=== PATIENT | male | born 1955 | race Caucasian/White ===

== ENCOUNTER 2019-02-09 12:51 | Emergency (ER) | payer BC ==
[2019-02-09] MEDS ORDERED: Lidocaine 1% (PF) 30 ML VIAL ONE (14:07)
--- NOTE | 2019-02-09 14:24 | RAD ---
EXAM: 3 views of the left hand COMPARISON: None HISTORY: Laceration to the fingers of the hand with a table saw FINDINGS: 3 views of the left hand shows no evidence of acute fracture or dislocation. There may be a small radiopaque foreign body along the volar aspect of the ring finger. No degenerative changes are seen. No soft tissue swelling is present. IMPRESSION: No evidence of acute osseous abnormality.
== END 2019-02-09 15:05 | disposition home or self-care (01) ==
LOC: ERS 12:51
DX: S61.215A Laceration without foreign body of left ring finger without damage to nail, initial encounter (principal); S61.211A Laceration without foreign body of left index finger without damage to nail, initial encounter; S61.213A Laceration without foreign body of left middle finger without damage to nail, initial encounter; E78.5 Hyperlipidemia, unspecified; I10 Essential (primary) hypertension; E11.9 Type 2 diabetes mellitus without complications; Z79.4 Long term (current) use of insulin; W31.2XXA Contact with powered woodworking and forming machines, initial encounter
CPT/HCPCS: 12002; J2001

== ENCOUNTER 2020-11-30 08:04 | Emergency (ER) | payer BC ==
[2020-11-30 08:48] LABS: #Basophils 0.1 thou/uL (0.0-0.2); #Eosinphils 0.2 thou/uL (0.0-0.7); #Lymphocytes 1.8 thou/uL (1.20-3.40); #Neutrophils 7.1 thou/uL (1.40-6.50); %Basophils 0.6 % (0.0-1.0); %Eosinophils 1.5 % (0.0-10.0); %Lymphocytes 17.7 % (21.0-51.0); %Monocytes 9.8 % (0.0-10.0); %Neutrophils 70.5 % (42.0-75.0); Hemoglobin 16.7 g/dL (14.0-18.0); Mean Corpuscular HGB CONC 31.7 g/dL (32.0-36.0); Mean Corpuscular Hemoglobin 30.7 pg (27.0-31.0); Mean Corpuscular Volume 96.8 fL (78.0-98.0); Mean Platelet Volume 9.2 fL (7.4-10.4); Platelet Count 180 thou/uL (130-400); RBC Distribution Width 12.5 % (11.5-14.5); Red Blood Cell (RBC) Count 5.44 mill/uL (4.70-6.10); White Blood Cell (WBC) Count 10.1 thou/uL (4.8-10.8)
[2020-11-30 09:09] LABS: Bacteria/HPF None Seen HPF (None Seen); Bilirubin Negative (Negative); Blood, Urine 1+ (Negative); Clarity Clear (Clear); Glucose, Urine (Dipstick) Greater than 1000 mg/dL (Negative); Ketone, Urine Negative (Negative); Leukocyte Negative Leu/uL (Negative); Nitrite Negative (Negative); Protein, Urine (Dipstick) 100 mg/dL (Neg-Trace); RBC/HPF 0-3 HPF (0-3); Specific Gravity, Urine 1.027 (1.002-1.036); Squamous Epithelial None Seen HPF (0-3); Urobilinogen Normal mg/dL (Less than 2); WBC/HPF 0-3 HPF (0-3); pH, Urine 5.5 (5.0-9.0)
[2020-11-30 09:11] LABS: ALT (SGPT) 20 U/L (8-55); AST (SGOT) 17 U/L (5-34); Albumin 4.2 g/dL (3.4-4.8); Alkaline Phosphatase 72 U/L (40-110); Anion Gap 18 mmol/L (10-20); BUN (Urea Nitrogen) 24 mg/dL (8.4-25.7); Bilirubin, Total 0.7 mg/dL (0.2-1.2); Calc. Creatinine Clearance 0 mL/min (70-130); Calcium 9.6 mg/dL (7.8-10.44); Carbon Dioxide 24 mmol/L (23-31); Chloride 105 mmol/L (98-107); Globulin 3.6 g/dL (2.4-3.5); Glucose 229 mg/dL (80-115); Potassium 4.8 mmol/L (3.5-5.1); Protein, Total 7.8 g/dL (5.8-8.1); Sodium 142 mmol/L (136-145)
[2020-11-30] MEDS ORDERED: Morphine 4 MG/ML VIAL ONE (11:36)
[2020-11-30] MEDS ORDERED: cefTRIAXone\\ROCEPHIN 1 GM VIAL ONE (13:27)
== END 2020-11-30 14:57 | disposition home or self-care (01) ==
LOC: ERS 08:04
DX: N40.1 Benign prostatic hyperplasia with lower urinary tract symptoms (principal); R33.8 Other retention of urine; N39.0 Urinary tract infection, site not specified; I10 Essential (primary) hypertension; E78.00 Pure hypercholesterolemia, unspecified; E78.5 Hyperlipidemia, unspecified; Z79.4 Long term (current) use of insulin; Z87.891 Personal history of nicotine dependence; Z79.899 Other long term (current) drug therapy
CPT/HCPCS: 36415; 74177; 80053; 81003; 81015; 85025; 87086; 96365; 96375; J0696; J2270

== ENCOUNTER 2023-03-30 08:11 | Outpatient (CLI) | payer BC ==
[2023-03-30 09:57] LABS: #Basophils 0.1 10x3/uL (0.0-0.2); #Eosinphils 0.2 10x3/uL (0.0-0.5); #Monocytes 0.9 10x3/uL (0.0-1.1); #Neutrophils 4.6 10x3/uL (1.5-8.4); %Eosinophils 2.2 % (0.0-6.0); %Monocytes 11.2 % (0.0-10.0); %Neutrophils 55.4 % (40.0-75.0); Hematocrit 52.4 % (38.8-50.0); Hemoglobin 17.6 g/dL (13.5-17.5); Mean Corpuscular HGB CONC 33.6 g/dL (32.0-36.0); Mean Corpuscular Hemoglobin 31.7 pg (27.0-33.0); Mean Corpuscular Volume 94.4 fl (81.2-95.1); Platelet Count 181 10x3/uL (150-450); RBC Distribution Width 13.4 % (11.5-14.5); Red Blood Cell (RBC) Count 5.55 10x6/uL (4.32-5.72); White Blood Cell (WBC) Count 8.3 10x3/uL (3.5-10.5)
[2023-03-30 10:04] LABS: Prothrombin Time 10.9 sec (9.5-12.1)
[2023-03-30 10:09] LABS: ALT (SGPT) 24 U/L (8-55); AST (SGOT) 23 U/L (5-34); Albumin 4.4 g/dL (3.4-4.8); Alkaline Phosphatase 66 U/L (40-110); Anion Gap 17 mmol/L (10-20); BUN (Urea Nitrogen) 24 mg/dL (8.4-25.7); Bilirubin, Direct 0.3 mg/dL (0.1-0.3); Calc. Creatinine Clearance 0 mL/min (70-130); Calcium 9.7 mg/dL (7.8-10.44); Carbon Dioxide 21 mmol/L (23-31); Chloride 107 mmol/L (98-107); Estimated GFR 86; Globulin 3.6 g/dL (2.4-3.5); Glucose 91 mg/dL (80-115); Potassium 4.8 mmol/L (3.5-5.1); Sodium 140 mmol/L (136-145)
== END 2023-03-30 08:12 | disposition home or self-care (01) ==
LOC: LABBT 08:11
PROVIDERS: ATTEND Internal Medicine Gastroenterology
DX: Z01.818 Encounter for other preprocedural examination (principal)
CPT/HCPCS: 71046; 80053; 80076; 85025; 85610; 85730

== ENCOUNTER 2023-04-02 07:15 | Inpatient (IN) | payer BC, MEDICARE ==
[2023-04-02] MEDS ORDERED: Heparin 10,000 UNITS/ 10 ML VIAL ONE (07:19)
[2023-04-02] MEDS ORDERED: fentaNYL 50 mcg/mL 1 mL Vial ONE (07:19)
[2023-04-02] MEDS ORDERED: Midazolam HCl 2 mg/2 ml Vial ONE (07:19)
[2023-04-02] MEDS ORDERED: Lidocaine 1% (PF) 30 ML VIAL ONE (07:19)
[2023-04-02] MEDS ORDERED: Nitroglycerin 50 MG/250 ML BOT 0 ML ONE (07:20)
[2023-04-02] MEDS ORDERED: Atropine Sulfate 1 mg/10 ml Syringe ONE (08:03)
[2023-04-02 08:06] LABS: Cardiac Risk 4.7 (Less than 4.5)
[2023-04-02] MEDS ORDERED: Iopamidol 370 76% 100 ML VIAL ONE (09:54)
[2023-04-02 11:59] LABS: #Basophils 0.1 thou/uL (0.0-0.2); #Eosinphils 0.2 thou/uL (0.0-0.7); #Monocytes 0.8 thou/uL (0.11-0.59); #Neutrophils 4.6 thou/uL (1.40-6.50); %Basophils 0.6 % (0.0-1.0); %Lymphocytes 30.2 % (21.0-51.0); %Monocytes 9.7 % (0.0-10.0); %Neutrophils 57.3 % (42.0-75.0); Hematocrit 49.5 % (42.0-52.0); Hemoglobin 16.5 g/dL (14.0-18.0); Mean Corpuscular HGB CONC 33.3 g/dL (32.0-36.0); Mean Corpuscular Hemoglobin 31.8 pg (27.0-31.0); Mean Corpuscular Volume 95.4 fl (78.0-98.0); Mean Platelet Volume 11.7 fL (7.4-10.4); Platelet Count 177 10x3/uL (130-400); RBC Distribution Width 13.3 % (11.5-14.5); Red Blood Cell (RBC) Count 5.19 mill/uL (4.70-6.10); White Blood Cell (WBC) Count 8.1 10x3/uL (4.8-10.8)
[2023-04-02 12:10] LABS: Hemoglobin A1c 10.1 % (4.0-6.0)
[2023-04-02 12:22] LABS: ALT (SGPT) 21 U/L (8-55); AST (SGOT) 17 U/L (5-34); Alkaline Phosphatase 61 U/L (40-110); Anion Gap 10 mmol/L (10-20); BUN (Urea Nitrogen) 25 mg/dL (8.4-25.7); Bilirubin, Total 0.6 mg/dL (0.2-1.2); Calc. Creatinine Clearance 110 mL/min (70-130); Carbon Dioxide 21 mmol/L (23-31); Chloride 109 mmol/L (98-107); Cholesterol 144 mg/dl (< 200 Desired); Estimated GFR 95; Globulin 3.5 g/dL (2.4-3.5); Glucose 133 mg/dL (80-115); HDL Cholesterol 29 mg/dL (>60 Neg Risk); LDL Cholesterol, Calculated 94 mg/dL; Potassium 4.1 mmol/L (3.5-5.1); Protein, Total 7.5 g/dL (5.8-8.1); Sodium 136 mmol/L (136-145); Triglycerides 107 mg/dL (Less than 150)
[2023-04-02] MEDS: HumaLOG 300 UNITS/3 ML VIAL SC SCH (13:35)
[2023-04-02] MEDS: Insulin Glargine 30 UNITS/0.3 ML VIAL SC SCH (20:54)
[2023-04-02] MEDS: Atorvastatin Calcium 40 MG TAB PO SCH (20:55)
[2023-04-02] MEDS: Carvedilol 6.25 MG TAB PO SCH (20:55)
[2023-04-03] MEDS: Tamsulosin HCl 0.4 MG CAP PO SCH (09:00)
[2023-04-03] MEDS ORDERED: Empagliflozin 10 MG TAB PO SCH (09:00)
[2023-04-03] MEDS: Aspirin 81 mg Enteric Coated Tablet PO SCH (09:00)
[2023-04-03] MEDS: Insulin Glargine 30 UNITS/0.3 ML VIAL SC SCH (09:00)
[2023-04-03] MEDS: Lisinopril 10 MG TAB PO SCH (09:02)
[2023-04-03 09:47] LABS: Bacteria/HPF 4+ HPF (None Seen); Bilirubin Negative (Negative); Blood, Urine 1+ (Negative); Clarity Turbid (Clear); Glucose, Urine (Dipstick) 300 mg/dL (Negative); Ketone, Urine Negative (Negative); Leukocyte 500 Leu/uL (Negative); Nitrite Negative (Negative); Protein, Urine (Dipstick) 50 mg/dL (Neg-Trace); Urobilinogen Normal mg/dL (Less than 2); WBC/HPF Greater than 50 HPF (0-3); pH, Urine 5.5 (5.0-9.0)
[2023-04-03] MEDS ORDERED: Communication Order-Pharmacy FS SCH (14:50)
[2023-04-04] MEDS ORDERED: EPINEPHrine 1 MG/ML VIAL ONE (06:16)
[2023-04-04] MEDS ORDERED: Dexamethasone 4 mg/ml Vial ONE (06:16)
[2023-04-04] MEDS ORDERED: Bupivacaine PF 0.5% 30 ML VIAL ONE (06:16)
[2023-04-04] MEDS ORDERED: Albumin 5% 500 ML ONE (06:16)
[2023-04-04] MEDS ORDERED: Midazolam HCl 2 mg/2 ml Vial ONE ×2 (06:43)
[2023-04-04] MEDS ORDERED: Fentanyl 250 MCG/5 ML VIAL ONE ×2 (06:43)
[2023-04-04] MEDS ORDERED: Aminocaproic Acid 5 GM/20 ML VIAL ONE ×2 (06:44→07:49)
[2023-04-04] MEDS ORDERED: PHENYLEPHRINE-NS 100 MCG/ML 10 ML SYRINGE ONE ×2 (06:44→09:58)
[2023-04-04] MEDS ORDERED: Heparin 10,000 UNITS/1 ML VIAL 30,000 UNITS in Sodium Chloride 0.9% 1,000 ML FS SCH (06:45)
[2023-04-04] MEDS ORDERED: Etomidate 40 MG (20 mL) VIAL ONE (06:45)
[2023-04-04] MEDS ORDERED: CEFAZOLIN 2 GM VIAL ONE (07:25)
[2023-04-04] MEDS ORDERED: Sodium Chloride 0.9% 100 ML ONE (07:26)
[2023-04-04] MEDS ORDERED: Vecuronium 10 MG VIAL ONE (07:49)
[2023-04-04] MEDS ORDERED: Potassium Chloride 60 mEq (30 mL) VIAL ONE (07:49)
[2023-04-04] MEDS ORDERED: DOPamine 400 MG/10 ML VIAL ONE (07:49)
[2023-04-04] MEDS ORDERED: Lidocaine 2% PF 100 mg/5 ml Syringe ONE (07:49)
[2023-04-04] MEDS ORDERED: Cardioplegic Soln 1,000 ML BAG ONE (07:49)
[2023-04-04] MEDS ORDERED: Protamine Sulfate 250 MG/25 ML VIAL ONE (07:49)
[2023-04-04] MEDS ORDERED: Vancomycin 1 GM VIAL ONE (07:49)
[2023-04-04] MEDS ORDERED: Mannitol 12.5 GM/50 ML ONE (07:49)
[2023-04-04] MEDS ORDERED: Calcium Chloride 1 GM/10 ML Abboject SYRINGE ONE (07:49)
[2023-04-04] MEDS ORDERED: Heparin 30,000 units/30 ml VIAL ONE (07:49)
[2023-04-04] MEDS ORDERED: Heparin 5,000 UNITS/ML VIAL ONE (07:49)
[2023-04-04] MEDS ORDERED: Papaverine 60 MG/2 ML VIAL ONE (07:49)
[2023-04-04] MEDS ORDERED: Lidocaine 1% PF 5 ML VIAL ONE (07:49)
[2023-04-04] MEDS ORDERED: Sodium Bicarb 50 mEq/50 ML VIAL ONE (07:49)
[2023-04-04] MEDS ORDERED: Thrombin 5000 UNITS/5 ML VIAL ONE (07:49)
[2023-04-04] MEDS ORDERED: Magnesium 5 GM/10 ML VIAL ONE (07:49)
[2023-04-04] MEDS ORDERED: Sevoflurane 250 ML INH ANEST BOTTLE ONE (08:15)
[2023-04-04] MEDS ORDERED: Insulin Regular 300 UNITS/3 ML VIAL ONE (08:15)
[2023-04-04] MEDS ORDERED: PROPOFOL 20 ML ONE (09:18)
[2023-04-04] MEDS ORDERED: Post-Op Insulin Drip Protocol IVPB SCH (11:47)
[2023-04-04] MEDS ORDERED: hydrALAZINE 20 MG/ML VIAL SLOW IVP PRN (11:47)
[2023-04-04] MEDS ORDERED: Bisacodyl 10 MG SUPP PR PRN (11:47)
[2023-04-04] MEDS ORDERED: Albumin 5% 12.5 GM (250 mL) BOT IVPB PRN (11:47)
[2023-04-04] MEDS ORDERED: Nitroglycerin 50 MG/250 ML BOT 250 ML IVPB PRN (11:47)
[2023-04-04] MEDS ORDERED: Ondansetron PF 4 MG/2 ML Vial IVP PRN (11:47)
[2023-04-04] MEDS ORDERED: Acetaminophen 325 MG TAB PO PRN (11:47)
[2023-04-04] MEDS ORDERED: Potassium Chloride 20 MEQ (100 mL) BAG IVPB PRN (11:47)
[2023-04-04] MEDS ORDERED: Guaifenesin DM 100-10/5 ML UDCUP PO PRN (11:47)
[2023-04-04] MEDS ORDERED: Promethazine HCl 25 MG/ML VIAL IM PRN (11:47)
[2023-04-04] MEDS ORDERED: niCARdipine 25 MG in Sodium Chloride 0.9% 250 ML 250 ML IVPB PRN (11:47)
[2023-04-04] MEDS ORDERED: NOREPINEPHRINE 8 MG/250 ML-D5W 250 ML IVPB PRN (11:47)
[2023-04-04] MEDS ORDERED: Hetastarch 6% 500 ML 500 ML IVPB PRN (11:47)
[2023-04-04] MEDS ORDERED: Mag-Al 1200 mg/1200 mg/30 ML UDCUP PO PRN (11:47)
[2023-04-04] MEDS ORDERED: Morphine 2 MG/ML VIAL SLOW IVP PRN (11:47)
[2023-04-04 12:11] LABS: Actual Bicarbonate (HCO3a) 21.4 mEq/L (22-28); Base Excess (BEa) -4.7 mEq/L (-2.0 to +3.0); CO2 Tension 43.4 mmHg (35.0-45.0); Calcium, Ionized (arterial) 1.26 mmol/L (1.12-1.30); Carboxyhemoglobin (COHb) 1.2 gm% (0.0-3.0); Hematocrit-ABG 41 % (42.0-52.0); Hemoglobin (Hb) 14.1 g/dL (14.0-18.0); O2 Tension (PaO2), arterial 63.7 mmHg (> 80.0); Potassium - ABG Lab 4.38 mmol/L (3.70-5.30); pH, Arterial 7.311 (7.35-7.45)
[2023-04-04 12:12] LABS: Puncture Site Arterial Line
[2023-04-04 12:24] LABS: #Basophils 0.1 thou/uL (0.0-0.2); #Eosinphils 0.2 thou/uL (0.0-0.7); #Monocytes 1.2 thou/uL (0.11-0.59); #Neutrophils 15.7 thou/uL (1.40-6.50); %Basophils 0.5 % (0.0-1.0); %Eosinophils 1.2 % (0.0-10.0); %Lymphocytes 15.3 % (21.0-51.0); %Monocytes 5.8 % (0.0-10.0); %Neutrophils 76.4 % (42.0-75.0); Hematocrit 42.1 % (42.0-52.0); Hemoglobin 13.9 g/dL (14.0-18.0); Mean Corpuscular Hemoglobin 31.9 pg (27.0-31.0); Mean Corpuscular Volume 96.6 fl (78.0-98.0); Mean Platelet Volume 11.6 fL (7.4-10.4); Platelet Count 152 10x3/uL (130-400); RBC Distribution Width 13.7 % (11.5-14.5); Red Blood Cell (RBC) Count 4.36 mill/uL (4.70-6.10); White Blood Cell (WBC) Count 20.5 10x3/uL (4.8-10.8)
[2023-04-04] MEDS: fentaNYL 50 mcg/mL 1 mL Vial ONE (12:30)
[2023-04-04] MEDS: Nitroglycerin 50 MG/250 ML BOT 250 ML ONE (12:33)
[2023-04-04] MEDS: Sodium Chloride 0.9% 1,000 ML IV SCH (12:34)
[2023-04-04 12:39] LABS: INR-International Normal Ratio 1.3; PTT 25.4 sec (22.9-36.1); Prothrombin Time 16.3 sec (12.0-14.7)
[2023-04-04] MEDS ORDERED: Glucagon 1 MG/ML KIT SC PRN (12:45)
[2023-04-04] MEDS ORDERED: Dextrose 50% Abboject 50 ML SYRINGE SLOW IVP PRN (12:45)
[2023-04-04] MEDS ORDERED: Dextrose 5% in Water 1,000 ML IV PRN (12:45)
[2023-04-04 12:51] LABS: Anion Gap 14 mmol/L (10-20); BUN (Urea Nitrogen) 21 mg/dL (8.4-25.7); Calc. Creatinine Clearance 109 mL/min (70-130); Calcium 8.8 mg/dL (7.8-10.44); Carbon Dioxide 20 mmol/L (23-31); Chloride 112 mmol/L (98-107); Estimated GFR 94; Glucose 180 mg/dL (80-115); Potassium 4.6 mmol/L (3.5-5.1); Sodium 141 mmol/L (136-145)
[2023-04-04] MEDS: Ketorolac Tromethamine 30 MG (1 mL) VIAL IVP SCH (13:00)
[2023-04-04] MEDS: Magnesium 2 GM/50 ML(in water) 2 GM in Premix 1 BAG IVPB SCH (13:01)
[2023-04-04] MEDS: HUMULIN R 100 UNITS in Sodium Chloride 0.9% 100 ML IVPB SCH (13:46)
[2023-04-04] MEDS: Ipratropium/Albuterol 3 ML NEB NEB SCH (14:15)
[2023-04-04] MEDS: Albumin 5% 12.5 GM (250 mL) BOT IVPB PRN (14:17)
[2023-04-04] MEDS: CEFAZOLIN 2 GM in Sodium Chloride 0.9% 100 ML IVPB SCH (14:27)
[2023-04-04 16:03] LABS: Actual Bicarbonate (HCO3a) 19.2 mEq/L (22-28); Base Excess (BEa) -3.1 mEq/L (-2.0 to +3.0); CO2 Tension 27.8 mmHg (35.0-45.0); Calcium, Ionized (arterial) 1.23 mmol/L (1.12-1.30); Carboxyhemoglobin (COHb) 1.5 gm% (0.0-3.0); Hematocrit-ABG 42 % (42.0-52.0); Hemoglobin (Hb) 14.4 g/dL (14.0-18.0); O2 Tension (PaO2), arterial 84.1 mmHg (> 80.0); Potassium - ABG Lab 4.19 mmol/L (3.70-5.30); pH, Arterial 7.458 (7.35-7.45)
[2023-04-04 16:04] LABS: Puncture Site Arterial Line
[2023-04-04] MEDS: fentaNYL 50 mcg/mL 1 mL Vial SLOW IVP PRN (16:04)
[2023-04-04 17:45] LABS: Hematocrit 41.5 % (42.0-52.0); Hemoglobin 13.6 g/dL (14.0-18.0)
[2023-04-04 18:05] LABS: Potassium 4.1 mmol/L (3.5-5.1)
[2023-04-04] MEDS: HYDROcodone/Acetaminophen 5/325 mg Tablet PO PRN (19:29)
[2023-04-04] MEDS: Famotidine/PF 20 mg/2ml Vial SLOW IVP SCH (20:17)
[2023-04-04] MEDS: Atorvastatin Calcium 10 MG TAB PO SCH (20:17)
[2023-04-05] MEDS: HYDROcodone/Acetaminophen 5/325 mg Tablet PO PRN (00:16)
[2023-04-05 04:29] LABS: #Basophils 0.1 thou/uL (0.0-0.2); #Monocytes 1.3 thou/uL (0.11-0.59); #Neutrophils 12.1 thou/uL (1.40-6.50); %Basophils 0.5 % (0.0-1.0); %Eosinophils 0.2 % (0.0-10.0); %Lymphocytes 11.2 % (21.0-51.0); %Monocytes 8.3 % (0.0-10.0); %Neutrophils 79.5 % (42.0-75.0); Hematocrit 39.8 % (42.0-52.0); Hemoglobin 12.9 g/dL (14.0-18.0); Mean Corpuscular HGB CONC 32.4 g/dL (32.0-36.0); Mean Corpuscular Hemoglobin 31.5 pg (27.0-31.0); Mean Corpuscular Volume 97.3 fl (78.0-98.0); Mean Platelet Volume 12.3 fL (7.4-10.4); Platelet Count 128 10x3/uL (130-400); RBC Distribution Width 13.9 % (11.5-14.5); Red Blood Cell (RBC) Count 4.09 mill/uL (4.70-6.10); White Blood Cell (WBC) Count 15.2 10x3/uL (4.8-10.8)
[2023-04-05 04:56] LABS: Anion Gap 12 mmol/L (10-20); BUN (Urea Nitrogen) 23 mg/dL (8.4-25.7); Calc. Creatinine Clearance 104 mL/min (70-130); Carbon Dioxide 21 mmol/L (23-31); Chloride 112 mmol/L (98-107); Estimated GFR 88; Glucose 107 mg/dL (80-115); Potassium 4.1 mmol/L (3.5-5.1); Sodium 141 mmol/L (136-145)
[2023-04-05] MEDS ORDERED: Artificial Tear Sol 15 ML BOT EA EYE PRN (07:22)
[2023-04-05] MEDS ORDERED: Nitroglycerin 0.4 MG TAB (25 Tab Bottle) SL PRN (07:22)
[2023-04-05] MEDS ORDERED: Bisacodyl 10 MG SUPP PR PRN (07:22)
[2023-04-05] MEDS ORDERED: Guaifenesin DM 100-10/5 ML UDCUP PO PRN (07:22)
[2023-04-05] MEDS ORDERED: Mineral Oil ENEMA PR PRN (07:22)
[2023-04-05] MEDS ORDERED: diphenhydrAMINE 25 MG CAP PO PRN (07:22)
[2023-04-05] MEDS ORDERED: Zolpidem Tartrate 5 MG TAB PO PRN (07:22)
[2023-04-05] MEDS ORDERED: Mag-Al 1200 mg/1200 mg/30 ML UDCUP PO PRN (07:22)
[2023-04-05] MEDS ORDERED: Bisacodyl 5 MG TAB PO PRN (07:22)
[2023-04-05] MEDS ORDERED: Insulin Glargine 30 UNITS/0.3 ML VIAL SC PRN (08:00)
[2023-04-05] MEDS ORDERED: Aspirin 325 mg Enteric Coated Tablet PO SCH (09:00)
[2023-04-05] MEDS: Famotidine 20 MG TAB PO SCH (09:19)
[2023-04-05] MEDS: Metoprolol Tartrate 25 MG TAB PO SCH (09:20)
[2023-04-05] MEDS: Aspirin 325 MG TAB PO SCH (09:21)
[2023-04-05] MEDS: Insulin Regular 300 UNITS/3 ML VIAL SC PRN (09:23)
[2023-04-05 14:37] LABS: Actual Bicarbonate (HCO3a) 18.1 mEq/L (22-28); Analyzer IN Cardio OR; Base Excess (BEa) -7.2 mEq/L (-2.0 to +3.0); CO2 Tension 35.8 mmHg (35.0-45.0); Calcium, Ionized (arterial) 1.07 mmol/L (1.12-1.30); Carboxyhemoglobin (COHb) 0.8 gm% (0.0-3.0); Hematocrit-ABG 37 % (42.0-52.0); Hemoglobin (Hb) 12.5 g/dL (14.0-18.0); O2 Tension (PaO2), arterial 318.1 mmHg (> 80.0); Potassium - ABG Lab 5.23 mmol/L (3.70-5.30); pH, Arterial 7.322 (7.35-7.45)
[2023-04-05 14:37] LABS: Actual Bicarbonate (HCO3a) 22.7 mEq/L (22-28); Analyzer IN Cardio OR; Base Excess (BEa) -2.5 mEq/L (-2.0 to +3.0); CO2 Tension 40.8 mmHg (35.0-45.0); Calcium, Ionized (arterial) 1.28 mmol/L (1.12-1.30); Carboxyhemoglobin (COHb) 0.6 gm% (0.0-3.0); Hematocrit-ABG 36 % (42.0-52.0); Hemoglobin (Hb) 12.4 g/dL (14.0-18.0); O2 Tension (PaO2), arterial 265.3 mmHg (> 80.0); Potassium - ABG Lab 5.26 mmol/L (3.70-5.30); pH, Arterial 7.364 (7.35-7.45)
[2023-04-05 14:37] LABS: Actual Bicarbonate (HCO3a) 17.4 mEq/L (22-28); Analyzer IN Cardio OR; Base Excess (BEa) -8.1 mEq/L (-2.0 to +3.0); CO2 Tension 35.9 mmHg (35.0-45.0); Calcium, Ionized (arterial) 1.27 mmol/L (1.12-1.30); Carboxyhemoglobin (COHb) 0.7 gm% (0.0-3.0); Hematocrit-ABG 37 % (42.0-52.0); Hemoglobin (Hb) 12.5 g/dL (14.0-18.0); O2 Tension (PaO2), arterial 105.8 mmHg (> 80.0); Potassium - ABG Lab 4.27 mmol/L (3.70-5.30); pH, Arterial 7.304 (7.35-7.45)
[2023-04-05 14:38] LABS: Actual Bicarbonate (HCO3a) 20.5 mEq/L (22-28); Analyzer IN Cardio OR; Base Excess (BEa) -5.7 mEq/L (-2.0 to +3.0); CO2 Tension 42.7 mmHg (35.0-45.0); Calcium, Ionized (arterial) 1.13 mmol/L (1.12-1.30); Carboxyhemoglobin (COHb) 1.1 gm% (0.0-3.0); Hematocrit-ABG 43 % (42.0-52.0); Hemoglobin (Hb) 14.7 g/dL (14.0-18.0); O2 Tension (PaO2), arterial 128.5 mmHg (> 80.0); Potassium - ABG Lab 4.21 mmol/L (3.70-5.30)
[2023-04-05 14:38] LABS: Actual Bicarbonate (HCO3a) 21.7 mEq/L (22-28); Analyzer IN Cardio OR; Base Excess (BEa) -4.4 mEq/L (-2.0 to +3.0); CO2 Tension 43.1 mmHg (35.0-45.0); Calcium, Ionized (arterial) 1.17 mmol/L (1.12-1.30); Carboxyhemoglobin (COHb) 1.2 gm% (0.0-3.0); Hematocrit-ABG 46 % (42.0-52.0); Hemoglobin (Hb) 15.5 g/dL (14.0-18.0); O2 Tension (PaO2), arterial 107.1 mmHg (> 80.0); Puncture Site Arterial Line; pH, Arterial 7.319 (7.35-7.45)
[2023-04-05 14:39] LABS: Puncture Site Arterial Line
[2023-04-05 14:39] LABS: Puncture Site Arterial Line
[2023-04-05 14:40] LABS: Puncture Site Arterial Line
[2023-04-05 14:40] LABS: Puncture Site Arterial Line
[2023-04-05] MEDS: fentaNYL 50 mcg/mL 1 mL Vial SLOW IVP PRN (19:47)
[2023-04-05] MEDS: Atorvastatin Calcium 20 MG TAB PO SCH (21:08)
[2023-04-05 21:30] VITALS: BMI 30.5
[2023-04-06 04:48] LABS: #Basophils 0.1 thou/uL (0.0-0.2); #Eosinphils 0.1 thou/uL (0.0-0.7); #Monocytes 1.2 thou/uL (0.11-0.59); #Neutrophils 9.6 thou/uL (1.40-6.50); %Basophils 0.5 % (0.0-1.0); %Lymphocytes 16.5 % (21.0-51.0); %Monocytes 9.3 % (0.0-10.0); %Neutrophils 72.3 % (42.0-75.0); Hematocrit 37.7 % (42.0-52.0); Hemoglobin 12.1 g/dL (14.0-18.0); Mean Corpuscular HGB CONC 32.1 g/dL (32.0-36.0); Mean Corpuscular Hemoglobin 31.4 pg (27.0-31.0); Mean Corpuscular Volume 97.9 fl (78.0-98.0); Mean Platelet Volume 12.2 fL (7.4-10.4); Platelet Count 120 10x3/uL (130-400); RBC Distribution Width 13.8 % (11.5-14.5); Red Blood Cell (RBC) Count 3.85 mill/uL (4.70-6.10); White Blood Cell (WBC) Count 13.2 10x3/uL (4.8-10.8)
[2023-04-06 05:12] LABS: Anion Gap 10 mmol/L (10-20); BUN (Urea Nitrogen) 20 mg/dL (8.4-25.7); Calc. Creatinine Clearance 115 mL/min (70-130); Calcium 8.2 mg/dL (7.8-10.44); Carbon Dioxide 24 mmol/L (23-31); Chloride 107 mmol/L (98-107); Estimated GFR 96; Glucose 209 mg/dL (80-115); Potassium 4.2 mmol/L (3.5-5.1); Sodium 137 mmol/L (136-145)
[2023-04-06] MEDS: FLU VACC QS2023(65UP)/MF59C/PF 60 MCG/0.5 ML SYRINGE IM ONE (07:21)
[2023-04-06] MEDS: Furosemide 20 MG (2 mL) VIAL SLOW IVP SCH (07:41)
[2023-04-06] MEDS: Metoprolol Tartrate 50 MG TAB PO SCH (07:41)
[2023-04-06] MEDS: Empagliflozin 10 MG TAB PO SCH (08:50)
[2023-04-06] MEDS: Tamsulosin HCl 0.4 MG CAP PO SCH (20:12)
[2023-04-06] MEDS: Atorvastatin Calcium 40 MG TAB PO SCH (20:12)
[2023-04-06] MEDS: Carvedilol 6.25 MG TAB PO SCH (20:14)
[2023-04-07 04:55] LABS: #Eosinphils 0.2 thou/uL (0.0-0.7); #Neutrophils 7.4 thou/uL (1.40-6.50); %Basophils 0.4 % (0.0-1.0); %Eosinophils 1.9 % (0.0-10.0); %Lymphocytes 17.3 % (21.0-51.0); %Monocytes 9.2 % (0.0-10.0); %Neutrophils 70.6 % (42.0-75.0); Hematocrit 35.1 % (42.0-52.0); Hemoglobin 11.4 g/dL (14.0-18.0); Mean Corpuscular HGB CONC 32.5 g/dL (32.0-36.0); Mean Corpuscular Hemoglobin 31.5 pg (27.0-31.0); Mean Platelet Volume 12.6 fL (7.4-10.4); Platelet Count 124 10x3/uL (130-400); RBC Distribution Width 13.5 % (11.5-14.5); Red Blood Cell (RBC) Count 3.62 mill/uL (4.70-6.10); White Blood Cell (WBC) Count 10.5 10x3/uL (4.8-10.8)
[2023-04-07 05:18] LABS: Anion Gap 12 mmol/L (10-20); BUN (Urea Nitrogen) 24 mg/dL (8.4-25.7); Calc. Creatinine Clearance 115 mL/min (70-130); Calcium 8.1 mg/dL (7.8-10.44); Carbon Dioxide 23 mmol/L (23-31); Chloride 106 mmol/L (98-107); Estimated GFR 95; Glucose 126 mg/dL (80-115); Magnesium 2.1 mg/dL (1.6-2.6); Potassium 3.7 mmol/L (3.5-5.1); Sodium 137 mmol/L (136-145)
[2023-04-07] MEDS: Furosemide 20 MG TAB PO SCH (10:09)
[2023-04-07] MEDS: Lisinopril 10 MG TAB PO SCH (20:26)
[2023-04-08 04:36] LABS: #Basophils 0.1 thou/uL (0.0-0.2); #Eosinphils 0.3 thou/uL (0.0-0.7); #Monocytes 1.1 thou/uL (0.11-0.59); #Neutrophils 6.6 thou/uL (1.40-6.50); %Basophils 0.5 % (0.0-1.0); %Eosinophils 2.7 % (0.0-10.0); %Lymphocytes 20.4 % (21.0-51.0); %Monocytes 10.6 % (0.0-10.0); %Neutrophils 65.3 % (42.0-75.0); Hemoglobin 12.3 g/dL (14.0-18.0); Mean Corpuscular HGB CONC 32.4 g/dL (32.0-36.0); Mean Corpuscular Hemoglobin 31.5 pg (27.0-31.0); Mean Corpuscular Volume 97.2 fl (78.0-98.0); Mean Platelet Volume 12.2 fL (7.4-10.4); Platelet Count 164 10x3/uL (130-400); RBC Distribution Width 13.5 % (11.5-14.5); Red Blood Cell (RBC) Count 3.91 mill/uL (4.70-6.10); White Blood Cell (WBC) Count 10.1 10x3/uL (4.8-10.8)
[2023-04-08 05:00] LABS: Anion Gap 16 mmol/L (10-20); BUN (Urea Nitrogen) 28 mg/dL (8.4-25.7); Calc. Creatinine Clearance 99 mL/min (70-130); Calcium 8.7 mg/dL (7.8-10.44); Carbon Dioxide 21 mmol/L (23-31); Chloride 104 mmol/L (98-107); Estimated GFR 86; Glucose 118 mg/dL (80-115); Potassium 4.3 mmol/L (3.5-5.1); Sodium 137 mmol/L (136-145)
[2023-04-08] MEDS: traMADol HCl 50 MG TAB PO PRN (08:47)
[2023-04-08] MEDS: Amoxicillin/Potassium Clav 500 MG TAB PO SCH (12:29)
[2023-04-08] MEDS: Bisacodyl 5 MG TAB PO PRN (12:31)
[2023-04-09 04:39] LABS: #Basophils 0.1 thou/uL (0.0-0.2); #Eosinphils 0.3 thou/uL (0.0-0.7); %Basophils 0.7 % (0.0-1.0); %Lymphocytes 22.5 % (21.0-51.0); %Monocytes 10.8 % (0.0-10.0); %Neutrophils 62.6 % (42.0-75.0); Hematocrit 39.4 % (42.0-52.0); Hemoglobin 12.9 g/dL (14.0-18.0); Mean Corpuscular HGB CONC 32.7 g/dL (32.0-36.0); Mean Corpuscular Hemoglobin 31.5 pg (27.0-31.0); Mean Corpuscular Volume 96.1 fl (78.0-98.0); Platelet Count 188 10x3/uL (130-400); RBC Distribution Width 13.3 % (11.5-14.5); White Blood Cell (WBC) Count 9.5 10x3/uL (4.8-10.8)
[2023-04-09 05:05] LABS: Anion Gap 18 mmol/L (10-20); BUN (Urea Nitrogen) 28 mg/dL (8.4-25.7); Calc. Creatinine Clearance 103 mL/min (70-130); Calcium 8.8 mg/dL (7.8-10.44); Carbon Dioxide 19 mmol/L (23-31); Chloride 102 mmol/L (98-107); Estimated GFR 91; Glucose 115 mg/dL (80-115); Potassium 3.9 mmol/L (3.5-5.1); Sodium 135 mmol/L (136-145)
[2023-04-09] MEDS: Carvedilol 6.25 MG TAB PO SCH (08:44)
[2023-04-09] MEDS: HumaLOG 300 UNITS/3 ML VIAL SC SCH (11:15)
[2023-04-09 11:43] VITALS: TEMP 98
[2023-04-09 11:50] VITALS: BP 138/80
[2023-04-09] MEDS ORDERED: Carvedilol 6.25 MG TAB PO SCH (21:00)
[2023-04-10] MEDS ORDERED: Non-Formulary Item 1 EACH (Dapagliflozin Propanediol [Farxiga] 10 MG Tablet) PO SCH (09:00)
[2023-04-10] MEDS ORDERED: Tamsulosin HCl 0.4 MG CAP PO SCH (09:00)
[2023-04-10] MEDS ORDERED: Atorvastatin Calcium 40 MG TAB PO SCH (09:00)
[2023-04-10] MEDS ORDERED: Aspirin 81 mg Enteric Coated Tablet PO SCH (09:00)
[2023-04-10] MEDS ORDERED: Lisinopril 10 MG TAB PO SCH (09:00)
[2023-04-10] MEDS ORDERED: Insulin Glargine 30 UNITS/0.3 ML VIAL SC SCH (09:00)
== END 2023-04-09 15:10 | disposition home or self-care (01) | DRG 234 ==
LOC: CCL 07:15 → 2SE 08:38 → CCU 04-04 07:27 → 2NO 04-06 18:07
PROVIDERS: ADMIT Internal Medicine Cardiovascular Disease; ATTEND Internal Medicine Cardiovascular Disease
PROC: 4A023N7 Measurement of Cardiac Sampling and Pressure, Left Heart, Percutaneous Approach (ICD-10-PCS; 2023-04-02)
PROC: B2111ZZ Fluoroscopy of Multiple Coronary Arteries using Low Osmolar Contrast (ICD-10-PCS; 2023-04-02)
PROC: B2151ZZ Fluoroscopy of Left Heart using Low Osmolar Contrast (ICD-10-PCS; 2023-04-02)
PROC: 02100Z9 Bypass Coronary Artery, One Artery from Left Internal Mammary, Open Approach (ICD-10-PCS; principal; 2023-04-04)
PROC: 021109W Bypass Coronary Artery, Two Arteries from Aorta with Autologous Venous Tissue, Open Approach (ICD-10-PCS; 2023-04-04)
PROC: 06BQ4ZZ Excision of Left Saphenous Vein, Percutaneous Endoscopic Approach (ICD-10-PCS; 2023-04-04)
PROC: 5A1221Z Performance of Cardiac Output, Continuous (ICD-10-PCS; 2023-04-04)
PROC: 02L70CK Occlusion of Left Atrial Appendage with Extraluminal Device, Open Approach (ICD-10-PCS; 2023-04-04)
PROC: 4A133R1 Monitoring of Arterial Saturation, Peripheral, Percutaneous Approach (ICD-10-PCS; 2023-04-04)
PROC: 30233J1 Transfusion of Nonautologous Serum Albumin into Peripheral Vein, Percutaneous Approach (ICD-10-PCS; 2023-04-04)
PROC: 3E033XZ Introduction of Vasopressor into Peripheral Vein, Percutaneous Approach (ICD-10-PCS; 2023-04-04)
DX: I25.110 Atherosclerotic heart disease of native coronary artery with unstable angina pectoris (principal); N39.0 Urinary tract infection, site not specified; E11.9 Type 2 diabetes mellitus without complications; E78.00 Pure hypercholesterolemia, unspecified; I10 Essential (primary) hypertension; I25.5 Ischemic cardiomyopathy; I34.0 Nonrheumatic mitral (valve) insufficiency; N40.0 Benign prostatic hyperplasia without lower urinary tract symptoms; Z87.891 Personal history of nicotine dependence; Z98.890 Other specified postprocedural states
CPT/HCPCS: 36415; 36416; 36430; 71045; 80048; 80053; 80061; 81003; 81015; 82805; 83036; 83735; 85025; 85610; 85730; 86850; 86900; 86901; 93005; 93010; 93306; 93454; 93798; 94002; 94640; 99152; 99153; A4311; A4648; C1751; C1769; J0171; J0461; J0665; J1100; J1265; J1644; J1815; J1885; J1940; J2001; J2150; J2250; J2440; J2704; J2720; J3010; J3370; J3475; J3480; J3490; J7050; J7620; P9045; Q9967; S0017; S0028